=== PATIENT | female | born 1945 | race Two or more races ===

== ENCOUNTER 2020-02-10 09:36 | Outpatient (CLI) | payer OTHER ==
[~2020-02-10 09:36] MED LIST: CARAFATE1 GM PO; LEVSIN/SL0.125 MG SL; NEURIN; PEPCID AC20 MG PO; XARELTO15 MG; ZESTRIL40 M1
== END 2020-02-10 09:48 | disposition home or self-care (01) ==
LOC: NUCLEAR 09:36
PROVIDERS: ATTEND Internal Medicine Hematology & Oncology
DX: M81.0 Age-related osteoporosis without current pathological fracture (principal); C50.811 Malignant neoplasm of overlapping sites of right female breast; C50.812 Malignant neoplasm of overlapping sites of left female breast; Z85.3 Personal history of malignant neoplasm of breast; I80.222 Phlebitis and thrombophlebitis of left popliteal vein; D51.0 Vitamin B12 deficiency anemia due to intrinsic factor deficiency; E55.9 Vitamin D deficiency, unspecified; I10 Essential (primary) hypertension; E08.65 Diabetes mellitus due to underlying condition with hyperglycemia; K57.30 Diverticulosis of large intestine without perforation or abscess without bleeding; N20.0 Calculus of kidney; K59.00 Constipation, unspecified; K44.9 Diaphragmatic hernia without obstruction or gangrene; D12.3 Benign neoplasm of transverse colon; D27.0 Benign neoplasm of right ovary; E04.8 Other specified nontoxic goiter; K82.8 Other specified diseases of gallbladder

== ENCOUNTER 2020-03-08 07:37 | Outpatient (CLI) | payer OTHER | END 2020-03-08 07:40 | disposition home or self-care (01) | LOC: SONOGRAMA 07:37 → MAMO-SONO 08:15 | PROVIDERS: ATTEND Internal Medicine Hematology & Oncology | DX: N20.0 Calculus of kidney (principal); C50.811 Malignant neoplasm of overlapping sites of right female breast; C50.812 Malignant neoplasm of overlapping sites of left female breast; Z85.3 Personal history of malignant neoplasm of breast; I80.222 Phlebitis and thrombophlebitis of left popliteal vein; D51.0 Vitamin B12 deficiency anemia due to intrinsic factor deficiency; E55.9 Vitamin D deficiency, unspecified; I10 Essential (primary) hypertension; E08.65 Diabetes mellitus due to underlying condition with hyperglycemia; K57.30 Diverticulosis of large intestine without perforation or abscess without bleeding; K59.09 Other constipation; K44.9 Diaphragmatic hernia without obstruction or gangrene; D12.3 Benign neoplasm of transverse colon; D27.0 Benign neoplasm of right ovary; E04.8 Other specified nontoxic goiter; K82.8 Other specified diseases of gallbladder ==

== ENCOUNTER 2020-03-14 07:06 | Outpatient (CLI) | payer OTHER | END 2020-03-14 07:18 | disposition home or self-care (01) | LOC: NUCLEAR 07:06 | PROVIDERS: ATTEND Internal Medicine Hematology & Oncology | DX: K82.8 Other specified diseases of gallbladder (principal); C50.811 Malignant neoplasm of overlapping sites of right female breast; C50.812 Malignant neoplasm of overlapping sites of left female breast; Z85.3 Personal history of malignant neoplasm of breast; I80.222 Phlebitis and thrombophlebitis of left popliteal vein; D51.0 Vitamin B12 deficiency anemia due to intrinsic factor deficiency; E55.9 Vitamin D deficiency, unspecified; I10 Essential (primary) hypertension; E08.65 Diabetes mellitus due to underlying condition with hyperglycemia; K57.30 Diverticulosis of large intestine without perforation or abscess without bleeding; N20.0 Calculus of kidney; K59.09 Other constipation; K44.9 Diaphragmatic hernia without obstruction or gangrene; D12.3 Benign neoplasm of transverse colon; D27.0 Benign neoplasm of right ovary; E04.8 Other specified nontoxic goiter | CPT/HCPCS: 78227; A9537; J2805 ==

== ENCOUNTER 2020-05-25 07:14 | Outpatient (CLI) | payer OTHER | END 2020-05-25 07:20 | disposition home or self-care (01) | LOC: LAB 07:14 | PROVIDERS: ATTEND Internal Medicine Hematology & Oncology | DX: D50.8 Other iron deficiency anemias (principal); I10 Essential (primary) hypertension; R74.02 Elevation of levels of lactic acid dehydrogenase [LDH]; K76.89 Other specified diseases of liver; C50.811 Malignant neoplasm of overlapping sites of right female breast; C50.812 Malignant neoplasm of overlapping sites of left female breast; Z85.3 Personal history of malignant neoplasm of breast; I80.222 Phlebitis and thrombophlebitis of left popliteal vein; D51.0 Vitamin B12 deficiency anemia due to intrinsic factor deficiency; E55.9 Vitamin D deficiency, unspecified; E08.65 Diabetes mellitus due to underlying condition with hyperglycemia; K57.30 Diverticulosis of large intestine without perforation or abscess without bleeding; N20.0 Calculus of kidney; K44.9 Diaphragmatic hernia without obstruction or gangrene; D12.3 Benign neoplasm of transverse colon; D27.0 Benign neoplasm of right ovary; E04.8 Other specified nontoxic goiter; K82.8 Other specified diseases of gallbladder ==

== ENCOUNTER 2020-05-30 07:39 | Outpatient (CLI) | payer OTHER | END 2020-05-30 07:42 | disposition home or self-care (01) | LOC: TOM 07:39 | PROVIDERS: ATTEND Internal Medicine Gastroenterology | DX: K63.89 Other specified diseases of intestine (principal) ==

== ENCOUNTER 2020-09-19 08:14 | Outpatient (CLI) | payer OTHER | END 2020-09-19 08:19 | disposition home or self-care (01) | LOC: SONOGRAMA 08:14 | PROVIDERS: ATTEND Internal Medicine Hematology & Oncology | DX: C50.811 Malignant neoplasm of overlapping sites of right female breast (principal); C50.812 Malignant neoplasm of overlapping sites of left female breast; Z85.3 Personal history of malignant neoplasm of breast; I80.222 Phlebitis and thrombophlebitis of left popliteal vein; D51.0 Vitamin B12 deficiency anemia due to intrinsic factor deficiency; I10 Essential (primary) hypertension; E08.65 Diabetes mellitus due to underlying condition with hyperglycemia; K57.30 Diverticulosis of large intestine without perforation or abscess without bleeding; N20.0 Calculus of kidney; K59.00 Constipation, unspecified; K44.9 Diaphragmatic hernia without obstruction or gangrene; D12.3 Benign neoplasm of transverse colon; D27.0 Benign neoplasm of right ovary; E04.8 Other specified nontoxic goiter; K82.8 Other specified diseases of gallbladder ==

== ENCOUNTER → 2020-11-19 07:07 | Outpatient (CLI) | payer OTHER | END | disposition home or self-care (01) | LOC: LAB 07:07 | PROVIDERS: ATTEND Internal Medicine Hematology & Oncology | DX: D50.8 Other iron deficiency anemias (principal); I10 Essential (primary) hypertension; R74.02 Elevation of levels of lactic acid dehydrogenase [LDH]; K76.89 Other specified diseases of liver; D51.8 Other vitamin B12 deficiency anemias; E55.9 Vitamin D deficiency, unspecified; E78.2 Mixed hyperlipidemia; E03.8 Other specified hypothyroidism; C50.919 Malignant neoplasm of unspecified site of unspecified female breast; R97.8 Other abnormal tumor markers; C56.9 Malignant neoplasm of unspecified ovary; R97.1 Elevated cancer antigen 125 [CA 125]; R97.0 Elevated carcinoembryonic antigen [CEA]; C50.811 Malignant neoplasm of overlapping sites of right female breast; C50.812 Malignant neoplasm of overlapping sites of left female breast; Z85.3 Personal history of malignant neoplasm of breast; I80.222 Phlebitis and thrombophlebitis of left popliteal vein; D51.0 Vitamin B12 deficiency anemia due to intrinsic factor deficiency; E08.65 Diabetes mellitus due to underlying condition with hyperglycemia; K57.30 Diverticulosis of large intestine without perforation or abscess without bleeding; N20.0 Calculus of kidney; K59.09 Other constipation; K44.9 Diaphragmatic hernia without obstruction or gangrene; D12.3 Benign neoplasm of transverse colon; D27.0 Benign neoplasm of right ovary; E04.8 Other specified nontoxic goiter; K82.8 Other specified diseases of gallbladder ==

== ENCOUNTER → 2020-11-19 | Outpatient (CLI) | payer OTHER | END | disposition home or self-care (01) | LOC: RAD 07:45 | PROVIDERS: ATTEND Internal Medicine Hematology & Oncology | DX: I10 Essential (primary) hypertension (principal); C50.811 Malignant neoplasm of overlapping sites of right female breast; C50.812 Malignant neoplasm of overlapping sites of left female breast; Z85.3 Personal history of malignant neoplasm of breast; I80.222 Phlebitis and thrombophlebitis of left popliteal vein; D51.0 Vitamin B12 deficiency anemia due to intrinsic factor deficiency; E08.65 Diabetes mellitus due to underlying condition with hyperglycemia; K57.30 Diverticulosis of large intestine without perforation or abscess without bleeding; N20.0 Calculus of kidney; K59.09 Other constipation; K44.9 Diaphragmatic hernia without obstruction or gangrene; D12.3 Benign neoplasm of transverse colon; D27.0 Benign neoplasm of right ovary; E04.8 Other specified nontoxic goiter; K82.8 Other specified diseases of gallbladder ==

== ENCOUNTER 2021-03-04 06:56 | Outpatient (CLI) | payer OTHER | END 2021-03-04 06:57 | disposition home or self-care (01) | LOC: LAB 06:56 | PROVIDERS: ATTEND Internal Medicine Hematology & Oncology | DX: C50.811 Malignant neoplasm of overlapping sites of right female breast (principal); C50.812 Malignant neoplasm of overlapping sites of left female breast; Z85.3 Personal history of malignant neoplasm of breast; I80.222 Phlebitis and thrombophlebitis of left popliteal vein; D51.0 Vitamin B12 deficiency anemia due to intrinsic factor deficiency; E55.9 Vitamin D deficiency, unspecified; I10 Essential (primary) hypertension; E08.65 Diabetes mellitus due to underlying condition with hyperglycemia; K57.30 Diverticulosis of large intestine without perforation or abscess without bleeding; N20.0 Calculus of kidney; K59.09 Other constipation; K44.9 Diaphragmatic hernia without obstruction or gangrene; D12.3 Benign neoplasm of transverse colon; D27.0 Benign neoplasm of right ovary; E04.8 Other specified nontoxic goiter; K82.8 Other specified diseases of gallbladder; D50.8 Other iron deficiency anemias; R74.02 Elevation of levels of lactic acid dehydrogenase [LDH]; K76.89 Other specified diseases of liver ==

== ENCOUNTER 2021-09-18 07:48 | Outpatient (CLI) | payer OTHER | END 2021-09-18 07:49 | disposition home or self-care (01) | LOC: LAB 07:48 | PROVIDERS: ATTEND Internal Medicine Hematology & Oncology | DX: D50.8 Other iron deficiency anemias (principal); I10 Essential (primary) hypertension; R74.02 Elevation of levels of lactic acid dehydrogenase [LDH]; K76.89 Other specified diseases of liver; C50.919 Malignant neoplasm of unspecified site of unspecified female breast; R97.8 Other abnormal tumor markers; C56.9 Malignant neoplasm of unspecified ovary; R97.1 Elevated cancer antigen 125 [CA 125]; R97.0 Elevated carcinoembryonic antigen [CEA]; C50.811 Malignant neoplasm of overlapping sites of right female breast; C50.812 Malignant neoplasm of overlapping sites of left female breast; Z85.3 Personal history of malignant neoplasm of breast; I80.222 Phlebitis and thrombophlebitis of left popliteal vein; D51.0 Vitamin B12 deficiency anemia due to intrinsic factor deficiency; E83.52 Hypercalcemia; E08.65 Diabetes mellitus due to underlying condition with hyperglycemia; K57.30 Diverticulosis of large intestine without perforation or abscess without bleeding; K59.00 Constipation, unspecified; K44.9 Diaphragmatic hernia without obstruction or gangrene; D12.3 Benign neoplasm of transverse colon; D27.0 Benign neoplasm of right ovary; E04.9 Nontoxic goiter, unspecified; K82.9 Disease of gallbladder, unspecified ==

== ENCOUNTER 2021-09-18 07:57 | Outpatient (CLI) | payer OTHER | END 2021-09-18 08:08 | disposition home or self-care (01) | LOC: SONOGRAMA 07:57 | PROVIDERS: ATTEND Internal Medicine Hematology & Oncology | DX: C50.811 Malignant neoplasm of overlapping sites of right female breast (principal); C50.812 Malignant neoplasm of overlapping sites of left female breast; K57.30 Diverticulosis of large intestine without perforation or abscess without bleeding; N20.0 Calculus of kidney; K59.00 Constipation, unspecified; K44.9 Diaphragmatic hernia without obstruction or gangrene; K82.9 Disease of gallbladder, unspecified; Z85.3 Personal history of malignant neoplasm of breast ==